=== PATIENT | male | born 1975 | race Caucasian/White ===

== ENCOUNTER → 2017-09-21 17:01 | Outpatient (CLI) | payer BC, SELFPAY ==
--- NOTE | 2017-09-21 16:55 | RAD_ITS ---
STUDY: X-RAY - RIGHT ELBOW REASON FOR EXAM: Male, 42 years old. Right elbow pain TECHNIQUE: 3 view(s) of the elbow. COMPARISON: None. FINDINGS: Normal visualized humerus, radius and ulna. Normal radiocapitellar and ulnotrochlear articulations. The soft tissue structures are unremarkable. RAD/Elbow min 3 Views IMPRESSION: Normal x-ray examination of the elbow. Electronically Signed: Yoni Salazar DO at 19:39 EDT Tel , Service support ,
== END ==
LOC: MTRAD 17:04
PROVIDERS: Family Provider Family Medicine; PCP Family Medicine; Visit Provider Family Medicine
DX: M25.521 Pain in right elbow (principal)
CPT/HCPCS: 73080

== ENCOUNTER 2017-11-01 17:00 | Outpatient (RCR) | payer BC, SELFPAY ==
--- NOTE | 2017-10-14 18:00 | HP.PTEVAL_ITS ---
Patient's Visit Information CAREY RODRIGUEZ is a 42 year old M referred to Physical Therapy by Maryan Diamond DO with a diagnosis of R post arm pain. Date of Evaluation: 10/14/17 Physical Therapist: Quan Albrecht PT, - Visit Plan Frequency: 2x /Week Duration: 3 Weeks Plan: US to distal tricep region, stick roll out, foam roller, stregnthening, and HEP - Subjective Subjective: Pt reports he has had R post elbow pain for over 4 months. Pt believes it may have been due to him swinging a hammer at work, which he does a lot. Pt reports it didnt really hurt that day, but for the next 2 days he was in severe pain. Pt notes he is unable to shake hands at this time due to pain. Pt reports the pain is mostly located on the distal insertion of the triceps region. No T or N at this time. Sleep diff at this time as pt notes he will wake up atleast a couple times a night. R hand dominant. No PMHx. 1/10 at rest, 9/10 at worst. - Pain R elbow Pain Intensity (Out of 10): 0 Pain Intensity Range: 9 - Objective Neuro:B UE sensation is WNL to light touch. B bicepital reflex= 2/3. Palpation : Pt is very sore on the distal triceps insertion site. No obvious deformity present at this time. elbow ROM: R= 0-135, L= 0-135. elbow MMT: B elbow flex = 5/5. L elbow ext= 5/5, R elbow ext= 4-/5 - Goals Goal 1:: Decrease R posterior elbow pain x 50% to aid with sleep Goal Time Frame: 2-4 Weeks Goal 2:: Increase R UE MMT to 5/5 to aid with RTW without limitation Goal Time Frame: 2-4 Weeks Goal 3:: I with HEP Goal Time Frame: 2-4 Weeks - Rehabilitation Potential Physical Therapy Diagnosis: R arm pain, limited ROM, and weakness secondary to a strain of the R distal triceps tendon Rehabilitation Potential: Good - Anticipated Interventions Patient/Client Instruction: Educate patient on: Condition, Plan of Care For the Purpose of:: To improve self management Therapeutic Exercise to Include: Strength training, Endurance training, Flexibilty training, Passive ROM, Active ROM, Scapular Strength/Stabilization For the Purpose of:: To decrease pain, To improve muscle performance and motor function Ultrasound (thermal/non thermal): Yes For the Purpose of:: To decrease pain Thank you for the opportunity to evaluate your patient. For Medicare and Medicare HMO plans, please review the plan of care and approve it. It will need to be FAXED BACK to us at [phone] for Medicare purposes. Please let me know if there are questions or concerns regarding this plan of care. Physician Signature: Date:
--- NOTE | 2017-12-17 08:14 | HP.PT.NRP ---
HP - Discharge Summary (1) - Patient Information CAREY RODRIGUEZ was seen in my office for initial evaluation on 10/14/17. The following Plan of Care was established for this patient: Initial Frequency: 2x /Week Initial Duration: 3 Weeks - Anticipated Interventions Patient/Client Instruction: Educate patient on: Condition, Plan of Care For the Purpose of:: To improve self management Therapeutic Exercise to Include: Strength training, Endurance training, Flexibilty training, Passive ROM, Active ROM, Scapular Strength/Stabilization For the Purpose of:: To decrease pain, To improve muscle performance and motor function Ultrasound (thermal/non thermal): Yes For the Purpose of:: To decrease pain This patient was last seen in our office . Pertinent comments regarding their Physical therapy will appear below: Pt was treated for 4 PT visits for his R posterior arm pain through the date of 11/01/17. Pt has not returned through todays date, and is therefore discontinued at this time. At this point I will be discontinuing this patient from physical therapy. I would be happy to see this patient again in the future if found appropriate by the physician. Thank you! Quan Albrecht, PT,
== END 2017-11-01 19:00 | disposition home or self-care (01) ==
LOC: PT 17:00
PROVIDERS: Family Provider Family Medicine; PCP Family Medicine; Visit Provider Orthopaedic Surgery
DX: M79.601 Pain in right arm (principal)
CPT/HCPCS: 97014; 97035; 97110; 97161; G0283

== ENCOUNTER → 2017-11-11 15:27 | Outpatient (CLI) | payer BC, SELFPAY | LOC: MRI 15:28 | PROVIDERS: Family Provider Family Medicine; PCP Family Medicine; Visit Provider Orthopaedic Surgery | DX: M77.8 Other enthesopathies, not elsewhere classified (principal); M79.601 Pain in right arm | CPT/HCPCS: 73220; A9585 ==

== ENCOUNTER → 2018-10-24 | Outpatient (CLI) | payer BC, SELFPAY ==
[2018-10-24 17:29] LABS: Absolute Lymphocyte Count 2.71 X10^3/uL (0.83-4.51); Absolute Neutrophil Count 5.4 X10^3/uL (2.0-7.7); Basophil# 0.09 X10^3/uL; Eosinophil# 0.14 X10^3/uL; Eosinophils% 1.5 % (0-5); Hematocrit 48.1 % (40-54); Hemoglobin 15.8 g/dL (13.0-16.5); Lymphocyte # 2.71 X10^3/ul (4.0); Lymphocyte % 28.8 % (19-41); Mean Corp Hgb Conc 32.8 g/dL (32-36); Mean Corpuscular Volume 94.3 fL (80-94); Mean Platelet Vol. 12.3 fl (6.2-12.0); Monocyte# 1.03 X10^3/uL; Monocyte% 10.9 % (0-10); NRBC Flagged by Analyzer 0 % (0-5); Neutrophil % 57.4 % (47-70); Platelet Count 204 K/mm3 (150-450); RBC Distribution Width CV 13.6 % (11.6-14.6); RBC Distribution Width SD 47.6 fl (35.1-43.9); White Blood Count 9.4 K/mm3 (4.4-11.0)
[2018-10-24 17:47] LABS: ALB/GLOB Ratio 1.2 RATIO (0.9-2.4); AST(SGOT) 34 U/L (15-37); Alanine Aminotransfer ALT/SGPT 73 U/L (16-61); Albumin, Serum 4.2 g/dL (3.2-5.0); Alkaline Phosphatase 72 U/L (45-117); Anion Gap 10 (5-15); BUN 20 mg/dL (7-18); BUN/Creat Ratio 14.4 RATIO (10-20); Chloride 108 mmol/L (98-107); Cholesterol 206 mg/dL (200); Creatinine, Serum 1.39 mg/dL (0.70-1.30); EST Glomerular Filtration Rate 59 mL/min (>60); Est Glom Filt Rate - Afr Amer 71 mL/min (>60); Globulin 3.6 g/dL (2.2-4.2); Glucose 97 mg/dL (74-106); High Density Lipoprotein 53 mg/dL; Protein, Total 7.8 g/dL (6.4-8.2); Sodium Level 144 mmol/L (136-145); Triglycerides 497 mg/dL
== END | disposition home or self-care (01) ==
LOC: BFHLAB 16:28
PROVIDERS: Family Provider Family Medicine; PCP Family Medicine; Visit Provider Family Medicine
DX: Z00.00 Encounter for general adult medical examination without abnormal findings (principal)
CPT/HCPCS: 36415; 80053; 80061; 85025

== ENCOUNTER → 2018-11-15 | Outpatient (CLI) | payer BC, SELFPAY | END | disposition home or self-care (01) | LOC: SL 20:24 | PROVIDERS: Family Provider Family Medicine; PCP Family Medicine; Referring Provider Family Medicine; Visit Provider Family Medicine | DX: G47.19 Other hypersomnia (principal); R53.83 Other fatigue; I10 Essential (primary) hypertension | CPT/HCPCS: 95810 ==

== ENCOUNTER → 2019-04-06 15:53 | Outpatient (CLI) | payer BC, SELFPAY ==
--- NOTE | 2019-04-06 15:57 | RAD_ITS ---
STUDY: X-RAY - RIGHT TIBIA AND FIBULA REASON FOR EXAM: Male, 43 years old. hit mid anterior tibia on a trailer hitch about a month ago, still having pain TECHNIQUE: 2 view(s) of the tibia and fibula were obtained. COMPARISON: None. FINDINGS: Normal visualized tibia. Normal visualized fibula. There is no demonstrated acute fracture. The soft tissue structures are unremarkable. RAD/Tibia & Fibula 2 Views IMPRESSION: Normal x-ray examination of the tibia and fibula. Electronically Signed: Sherrie Mosquera MD at 18:18 EST , Service support ,
== END ==
LOC: MTRAD 15:56
PROVIDERS: Family Provider Family Medicine; PCP Family Medicine; Referring Provider Family Medicine; Visit Provider Family Medicine
DX: M89.8X6 Other specified disorders of bone, lower leg (principal)
CPT/HCPCS: 73590

== ENCOUNTER → 2019-10-20 | Outpatient (CLI) | payer BC, SELFPAY | END | disposition home or self-care (01) | LOC: LABSPEC 09:41 | PROVIDERS: PCP Family Medicine; Referring Provider Family Medicine; Visit Provider Family Medicine | DX: Z20.828 Contact with and (suspected) exposure to other viral communicable diseases (principal) | CPT/HCPCS: 87635; 94799; U0003 ==

== ENCOUNTER → 2020-01-10 10:16 | Outpatient (CLI) | payer BC, SELFPAY ==
[2020-01-12 07:48] LABS: Testosterone Free 3.2 pg/mL (6.8-21.5)
== END ==
LOC: BFHLAB 10:19
PROVIDERS: PCP Family Medicine; Visit Provider Family Medicine
DX: R53.83 Other fatigue (principal); N52.9 Male erectile dysfunction, unspecified
CPT/HCPCS: 36415; 84402; 84403

== ENCOUNTER → 2020-01-19 09:51 | Outpatient (CLI) | payer BC, SELFPAY ==
[2020-01-19 12:44] LABS: Prolactin 4.2 ng/mL; Thyroid Stim Hormone (TSH) 4.38 uIU/mL (0.358-3.74)
[2020-01-24 09:07] LABS: Testosterone, % Free 1.97 % (1.50-4.20); Testosterone, Free 4.67 ng/dL (5.00-21.00)
[2020-01-24 11:40] LABS: Testosterone, Total 237 ng/dL (264-916); Transferrin 335 mg/dL (177-329)
== END ==
LOC: BFHLAB 09:52
PROVIDERS: PCP Family Medicine; Visit Provider Family Medicine
DX: E29.1 Testicular hypofunction (principal)
CPT/HCPCS: 36415; 84146; 84402; 84403; 84443; 84466

== ENCOUNTER → 2020-01-26 09:32 | Outpatient (CLI) | payer BC, SELFPAY ==
[2020-01-26 13:27] LABS: CRP < 2.90 mg/L (0.0-3.0); Ferritin 327 ng/mL (26-388)
[2020-01-27 14:32] LABS: Transferrin 316 mg/dL (177-329)
== END ==
PROVIDERS: PCP Family Medicine; Visit Provider Family Medicine
DX: M25.50 Pain in unspecified joint (principal); E29.1 Testicular hypofunction; R79.89 Other specified abnormal findings of blood chemistry
CPT/HCPCS: 36415; 82728; 84466; 86140

== ENCOUNTER → 2020-05-29 09:49 | Outpatient (CLI) | payer BC, SELFPAY ==
[2020-05-29 12:40] LABS: Erythrocyte Sedimentation Rate 4 mm/hr (0-20)
[2020-05-29 13:07] LABS: ALB/GLOB Ratio 1.2 RATIO (0.9-2.4); AST(SGOT) 30 U/L (15-37); Alanine Aminotransfer ALT/SGPT 56 U/L (16-61); Albumin, Serum 4.3 g/dL (3.2-5.0); Alkaline Phosphatase 59 U/L (45-117); Anion Gap 5 (5-15); BUN 13 mg/dL (7-18); BUN/Creat Ratio 9.7 RATIO (10-20); CRP < 2.90 mg/L (0.0-3.0); Calcium,Total 9.3 mg/dL (8.5-10.1); Chloride 102 mmol/L (98-107); Creatinine, Serum 1.34 mg/dL (0.70-1.30); EST Glomerular Filtration Rate 61 mL/min (>60); Est Glom Filt Rate - Afr Amer 74 mL/min (>60); Globulin 3.6 g/dL (2.2-4.2); Glucose 98 mg/dL (74-106); Protein, Total 7.9 g/dL (6.4-8.2); Rheumatoid Factor < 10.0 IU/mL (<15); Sodium Level 136 mmol/L (136-145)
[2020-06-01 20:07] LABS: Testosterone, % Free 2.49 % (1.50-4.20); Testosterone, Free 8.94 ng/dL (5.00-21.00)
[2020-06-01 21:19] LABS: CCP IgG Antibodies 3 units (0-19); Testosterone, Total 359 ng/dL (264-916)
== END ==
LOC: BFHLAB 09:50
PROVIDERS: PCP Family Medicine; Visit Provider Family Medicine
DX: I12.9 Hypertensive chronic kidney disease with stage 1 through stage 4 chronic kidney disease, or unspecified chronic kidney disease (principal); N18.30 Chronic kidney disease, stage 3 unspecified; E29.1 Testicular hypofunction; M25.50 Pain in unspecified joint
CPT/HCPCS: 36415; 80053; 84402; 84403; 85652; 86140; 86200; 86431

== ENCOUNTER → 2020-06-25 11:43 | Outpatient (CLI) | payer BC, SELFPAY ==
[2020-06-25 15:19] LABS: Absolute Neutrophil Count 4.1 X10^3/uL (2.0-7.7); Basophil# 0.07 X10^3/uL; Basophil% 0.9 % (0-1); Eosinophil# 0.26 X10^3/uL; Eosinophils% 3.4 % (0-5); Hematocrit 47.2 % (40-54); Hemoglobin 15.2 g/dL (13.0-16.5); Lymphocyte % 32.7 % (19-41); Mean Corp Hgb Conc 32.2 g/dL (32-36); Mean Corpuscular Hgb 30.9 pg (27.0-32.0); Mean Corpuscular Volume 95.9 fL (80-94); Mean Platelet Vol. 12.1 fl (6.2-12.0); Monocyte# 0.69 X10^3/uL; NRBC Flagged by Analyzer 0 % (0-5); Neutrophil % 53.7 % (47-70); Platelet Count 198 K/mm3 (150-450); RBC Distribution Width CV 14.2 % (11.6-14.6); RBC Distribution Width SD 50.1 fl (35.1-43.9); Red Blood Count 4.92 M/mm3 (4.6-6.2); White Blood Count 7.6 K/mm3 (4.4-11.0)
[2020-06-25 15:56] LABS: ALB/GLOB Ratio 1.2 RATIO (0.9-2.4); AST(SGOT) 31 U/L (15-37); Alanine Aminotransfer ALT/SGPT 62 U/L (16-61); Albumin, Serum 4.2 g/dL (3.2-5.0); Alkaline Phosphatase 52 U/L (45-117); Anion Gap 4 (5-15); BUN 14 mg/dL (7-18); BUN/Creat Ratio 11.6 RATIO (10-20); Calcium,Total 8.9 mg/dL (8.5-10.1); Chloride 105 mmol/L (98-107); Creatinine, Serum 1.21 mg/dL (0.70-1.30); EST Glomerular Filtration Rate 68 mL/min (>60); Est Glom Filt Rate - Afr Amer 83 mL/min (>60); Globulin 3.4 g/dL (2.2-4.2); Glucose 85 mg/dL (74-106); Potassium 3.9 mmol/L (3.5-5.1); Protein, Total 7.6 g/dL (6.4-8.2); Sodium Level 137 mmol/L (136-145)
== END ==
LOC: MTLAB 11:44
PROVIDERS: PCP Family Medicine; Referring Provider Family Medicine; Visit Provider Family Medicine
DX: Z51.81 Encounter for therapeutic drug level monitoring (principal)
CPT/HCPCS: 36415; 80053; 85025

== ENCOUNTER → 2021-03-12 11:37 | Outpatient (CLI) | payer BC, SELFPAY ==
--- NOTE | 2021-03-12 11:48 | RAD_ITS ---
STUDY: X-RAY - LUMBAR SPINE REASON FOR EXAM: Male, 45 years old. LBP TECHNIQUE: 5 view(s) of the lumbar spine were obtained. COMPARISON: Comparison is made with prior study dated 11/12/2015. FINDINGS: Normal lumbar lordosis. There is no substantial scoliosis. There is a normal alignment of the vertebrae. Partial lumbarization of the S1 vertebrae more prominent on the right side. Mild degree of spondylosis and disc space narrowing at the L4-L5 level. The soft tissue structures are unremarkable. RAD/L/S Spine Min 4 Views IMPRESSION: Degenerative changes of the spine, as detailed above. Electronically Signed: Akil Caal MD at 15:28 EST , Service support ,
== END ==
LOC: MTRAD 11:39
PROVIDERS: PCP Family Medicine; Referring Provider Family Medicine; Visit Provider Family Medicine
DX: M54.50 Low back pain, unspecified (principal)
CPT/HCPCS: 72110

== ENCOUNTER 2021-06-23 14:00 | Outpatient (CLI) | payer BC, SELFPAY ==
--- NOTE | 2021-06-23 14:08 | RAD_ITS ---
STUDY: X-RAY - UNILATERAL RIBS ( RIGHT ) WITH CHEST REASON FOR EXAM: Male, 45 years old. Anterior lower right rib injury since fall 6 weeks ago. TECHNIQUE - RIBS: 5 view(s) of the ribs. TECHNIQUE - CHEST: Single frontal view of the chest. COMPARISON: Chest x-ray dated 11/19/2014. FINDINGS - RIBS: Normal visualized ribs without a demonstrated fracture. FINDINGS - CHEST: The lungs are clear and expanded. There is no demonstrated pleural abnormality. Normal size heart. Normal mediastinum and yashira. Normal visualized pulmonary arteries. Normal visualized aortic arch and descending thoracic aorta. Normal visualized thoracic spine. Normal visualized ribs, clavicles, and shoulders. There is no demonstrated abnormality of the visualized soft tissue structures of the upper abdomen. RAD/Ribs Uni Min 3V w/PA Chest IMPRESSION: RIBS: Normal x-ray examination of the ribs. CHEST: No interval change. Normal x-ray examination of the chest. Electronically Signed: Mao Dixon MD at 9:10 EDT ,
== END 2021-06-23 23:59 | disposition home or self-care (01) ==
LOC: MTRAD 14:01
PROVIDERS: PCP Family Medicine; Referring Provider Family Medicine; Visit Provider Family Medicine
DX: R07.81 Pleurodynia (principal)
CPT/HCPCS: 71101

== ENCOUNTER → 2021-08-12 | Outpatient (CLI) | payer BC, SELFPAY ==
--- NOTE | 2021-08-12 06:51 | CT_ITS ---
STUDY: CT ABDOMEN AND PELVIS WITH CONTRAST REASON FOR EXAM: Male, 45 years old. LLQ ABD PAIN RADIATION DOSAGE (If Supplied By Facility): CTDIvol = ( 11.53 ) mGy, DLP = ( 1042.77 ) mGycm TECHNIQUE: Transaxial images were obtained from the dome of the diaphragm to the symphysis pubis without oral contrast. Oral and amp; IV Readi-CAT and amp; 100mL Isovue-370 was administered. Sagittal and coronal images were reconstructed. Individualized dose optimization techniques were used for this CT. COMPARISON: None. FINDINGS: The visualized lung bases are unremarkable. The visualized portions of the heart are within normal limits. Normal liver. Normal gallbladder and extrahepatic biliary system. Normal spleen. Normal pancreas. Normal bilateral adrenal glands. Normal right kidney. Normal left kidney. Normal visualized stomach. Normal small intestine. There is diverticulitis of the sigmoid colon with diverticula, thickening of the wall and a low density rounded collection which may be fluid within the wall. There is adjacent stranding in the pericolonic fat. The appendix is visualized and appears normal. Normal abdominal aorta. Normal inferior vena cava. Normal retroperitoneum. Normal urinary bladder. Normal abdominal wall. Normal osseous structures. CT/Abdomen/Pelvis WITH Contrast IMPRESSION: There is a loop of inflammation of the sigmoid colon likely representing diverticulitis without intramural abscess and pericolonic stranding. Electronically Signed: Jossue Granda MD at 7:42 EDT ,
[2021-08-12 07:05] LABS: CREATININE FINGERSTICK 1.4 mg/dL (0.70-1.30)
== END | disposition home or self-care (01) ==
LOC: CT 06:50
PROVIDERS: PCP Family Medicine; Visit Provider Family Medicine
DX: R10.32 Left lower quadrant pain (principal); I10 Essential (primary) hypertension
CPT/HCPCS: 74177; Q9967

== ENCOUNTER → 2023-02-11 | Outpatient (CLI) | payer BC, SELFPAY ==
[2023-02-11 09:56] LABS: Absolute Lymphocyte Count 2.64 X10^3/uL (0.83-4.51); Absolute Neutrophil Count 5.6 X10^3/uL (2.0-7.7); Basophil# 0.11 X10^3/uL; Basophil% 1.2 % (0-1); Eosinophil# 0.25 X10^3/uL; Eosinophils% 2.6 % (0-5); Hematocrit 48.9 % (40-54); Hemoglobin 15.5 g/dL (13.0-16.5); Lymphocyte # 2.64 X10^3/ul (0.83-4.51); Mean Corp Hgb Conc 31.7 g/dL (32-36); Mean Corpuscular Hgb 29.9 pg (27.0-32.0); Mean Corpuscular Volume 94.2 fL (80-94); Mean Platelet Vol. 12.3 fl (6.2-12.0); Monocyte# 0.81 X10^3/uL; Monocyte% 8.6 % (0-10); NRBC Flagged by Analyzer 0 % (0-5); Neutrophil # 5.61 X10^3/uL (2.7-7.7); Neutrophil % 59.4 % (47-70); Platelet Count 194 K/mm3 (150-450); RBC Distribution Width CV 13.4 % (11.6-14.6); RBC Distribution Width SD 46.5 fl (35.1-43.9); Red Blood Count 5.19 M/mm3 (4.6-6.2); White Blood Count 9.4 K/mm3 (4.4-11.0)
[2023-02-11 10:28] LABS: ALB/GLOB Ratio 1.1 RATIO (0.9-2.4); AST(SGOT) 24 U/L (15-37); Alanine Aminotransfer ALT/SGPT 48 U/L (16-61); Albumin, Serum 3.9 g/dL (3.2-5.0); Alkaline Phosphatase 73 U/L (45-117); Anion Gap 2 (5-15); BUN 16 mg/dL (7-18); Chloride 107 mmol/L (98-107); Cholesterol 222 mg/dL (200); Creatinine, Serum 1.14 mg/dL (0.70-1.30); EST Glomerular Filtration Rate 72 mL/min (>60); Est Glom Filt Rate - Afr Amer 88 mL/min (>60); Globulin 3.4 g/dL (2.2-4.2); Glucose 98 mg/dL (74-106); High Density Lipoprotein 48 mg/dL; Potassium 4.1 mmol/L (3.5-5.1); Protein, Total 7.3 g/dL (6.4-8.2); Sodium Level 139 mmol/L (136-145); T4 Free Direct 0.82 ng/dL (0.76-1.46); Thyroid Stim Hormone (TSH) 3.84 uIU/mL (0.358-3.74); Triglycerides 145 mg/dL; Very Low Density Lipoprotein 29 mg/dL (5-40)
== END | disposition home or self-care (01) ==
LOC: MTLAB 08:26
PROVIDERS: PCP Family Medicine; Referring Provider Nurse Practitioner Family; Visit Provider Nurse Practitioner Family
DX: Z00.01 Encounter for general adult medical examination with abnormal findings (principal); E78.1 Pure hyperglyceridemia; E03.9 Hypothyroidism, unspecified
CPT/HCPCS: 36415; 80053; 80061; 84402; 84403; 84439; 84443; 85025

== ENCOUNTER 2024-01-09 16:45 | Emergency (ER) | payer BC, SELFPAY ==
[2024-01-09 16:49] VITALS: BP 145/78; PULSE 77; RESP 18; TEMP 36.4; O2SAT 98; BMI 26.4
--- NOTE | 2024-01-09 16:54 | EKG12_ITS ---
Test Reason : CP Blood Pressure : / mmHG Vent. Rate : 070 BPM Atrial Rate : 070 BPM P-R Int : 160 ms QRS Dur : 100 ms QT Int : 392 ms P-R-T Axes : 069 067 070 degrees QTc Int : 423 ms Normal sinus rhythm Normal ECG Confirmed by Tyrell Metcalf ([id number]), editor managing newspaper DERRICK CAMPO ([id number]) on 01/11/2024 7:53:03 AM Referred By: Confirmed By:Tyrell Metcalf
--- NOTE | 2024-01-09 16:55 | ED.VIS.CHEST ---
HPI History of Present Illness Chief Complaint: Chest Pain Informant: patient Narrative Narrative: 30 minutes prior to arrival sudden onset midsternal chest pain rating to his back bilateral neck. He is playing cards with friends. He states short of breath and broke out in heavy sweats and was clammy. No pain on the arms. No cardiac history. Tobacco history and strong family history of MIs father having bypass at the age of 45. Hypertension. Denies diabetes or hyperlipidemia. Stress test 2 years ago. No history of heart caths. Symptoms overall lasted 6 minutes that was relayed to the son as it was timed by a friend who is a nurse. He is currently asymptomatic. Denies any cough. Reports pain was a combination sharp achiness and pressure. Prior Similar Symptoms: No PFSH PFSH Home Medications ?Medication ?Instructions ?Recorded ?Last Taken ?Type lisinopril 20 1 tab PO QDAY 10/12/17 Unknown History mg-hydrochlorothiazide 12.5 mg tablet montelukast 10 mg tablet 10 mg PO QPM 10/12/17 Unknown History (Singulair) Allergy/AdvReac Type Severity Reaction Status Date / Time erythromycin base Allergy Rash Verified 11/25/17 08:38 (Erythromycin Base) naproxen (From Naprosyn) Allergy Rash Verified 11/25/17 08:38 Social History Smoking Status: Current every day smoker tobacco type: cigarettes ROS ROS ED Constitutional Constitutional ED: Reports sweats; Denies chills or fever(s) Eyes Eyes: Denies change in vision ENT ENT ED: Denies dysphagia or sore throat Cardiovascular Cardiovascular: Reports chest pain; Denies leg edema, palpitations or racing heartbeat Respiratory/Chest Respiratory/Chest: Reports dyspnea; Denies cough or dyspnea on exertion Gastrointestinal Gastrointestinal: Denies abdominal pain, diarrhea, nausea or vomiting Genitourinary Genitourinary ED: Denies dysuria, hematuria or urinary frequency Musculoskeletal Musculoskeletal: Denies back pain, extremity pain or neck pain Integumentary Denies rash or wounds Neurologic Neurologic: Denies headache(s), paresthesias or weakness EXAM Physical Exam Const Vital Signs: 01/09/24 16:49 01/09/24 16:57 01/09/24 17:46 Temperature 97.5 F L Temperature Source Oral Pulse Rate 77 59 L Respiratory Rate 18 22 H Blood Pressure 145/78 H 119/87 H Blood Pressure Mean 100 97 Pulse Ox 98 93 Oxygen Delivery Method Room Air Room Air Room Air 01/09/24 18:00 01/09/24 19:00 01/09/24 19:51 Temperature 97 F L Temperature Source Pulse Rate 52 L 62 63 Respiratory Rate 21 H 27 H 28 H Blood Pressure 129/84 H 128/92 H 121/78 H Blood Pressure Mean 99 104 92 Pulse Ox 95 94 98 Oxygen Delivery Method Room Air Positive well nourished and well developed General Appearance ED: well developed and NAD HEENT Reports moist mucous membranes normocephalic and atraumatic Eyes EOMs intact bilaterally and conjunctivae normal General Eye ED: Yes normal appearance of both eyes Neck no lymphadenopathy and supple General: Negative for tenderness Chest Wall Chest: Negative for tenderness Resp normal respiratory effort and normal air movement Effort and Inspection: symmetric chest movement; Negative for respiratory distress Cardio regular rate, regular rhythm and no murmurs Peripheral Pulses: pulses 2+ throughout GI normal to inspection, nondistended, normoactive bowel sounds and non-tender Palpation: Negative for guarding or rebound tenderness present Back/Spine no CVA tenderness and no thoracic nor lumbar tenderness Extremity normal to inspection General Extremety ED: Negative for edema or tenderness General Extremity: Negative for edema Neuro oriented x3 and no sensory deficits noted Sensorium / Orientation: awake and alert Skin no rashes or lesions noted and no wounds Heart Score History: Highly Suspicious ECG: Normal Age: >45 - <65 years Risk Factors: >/= 3 Risk Factors or History of CAD Troponin: </= Normal Limit Score: 5 MDM MDM MDM Narrative Medical decision making narrative: Interventions / MDM: Differential diagnosis: Chest pain Diagnosis considered but do not suspect: N/A My EKG interpretation: Sinus rate of 70, no ST or T wave changes. Imaging independently reviewed and interpreted by myself: 1 view chest x-ray: No acute process also read by radiology. External documents reviewed: N/A Test considered but not ordered:N/A ED course: Patient currently symptom-free. EKG with no acute findings. Strong family history of MN at young age. Symptoms were concerning. Will give aspirin cardiac workup initiated. Will closely monitor. 1800: Remains symptom-free initial troponin negative. 1 view chest x-ray shows no acute process. Creatinine 1.4. Hemoglobin 14.2. He denies recent vomiting. Does admit to decreased p.o. intake at home. Awaiting delta troponin. 1940: Repeat troponin negative. Patient remained symptom-free throughout. Heart score is a 5. He had concerning symptoms, I discussed with patient for admission. However he states he would like to follow-up with PCP for further testing. As workup is negative this time, I feel that this is an option. Family was present during the discussion. They will call his PCP tomorrow for further testing. Discussed strict return precautions. All questions were answered. Re-evaluation: stable Disposition discussed with patient/family/significant other: Patient and family Case discussed with consulting clinician: N/A This note was generated with [employer] dictation software. It may contain incorrect words, spelling, and punctuation that were not noted in checking the note before signing. Lab Data Attestation: I reviewed the patient's lab results. Labs: Laboratory Results - last 24 hr 01/09/24 01/09/24 16:38 19:01 WBC 8.7 RBC 4.85 Hgb 14.2 Hct 44.6 MCV 92.0 MCH 29.3 MCHC 31.8 L RDW Std Deviation 47.8 H RDW Coeff of Jesse 14.2 Plt Count 265 MPV 10.8 Immature Gran % (Auto) 0.200 Neut % (Auto) 56.1 Lymph % (Auto) 32.0 [place] % (Auto) 8.7 Eos % (Auto) 2.2 Baso % (Auto) 0.8 Absolute Neuts (auto) 4.9 Absolute Lymphs (auto) 2.78 Nucleated RBC % 0 PT 13.3 INR 1.0 APTT 29.2 Sodium 134 L Potassium 3.6 Chloride 103 Carbon Dioxide 27.0 Anion Gap 5 BUN 13 Creatinine 1.40 H Estim Creat Clear Calc 69.29 Est GFR (MDRD) Af Amer 69 Est GFR (MDRD) Non-Af 57 L BUN/Creatinine Ratio 9.3 L Glucose 98 Calcium 9.2 Troponin I High Sens 4 5 Radiography Diagnostic Testing: Clinical Impression(s) from Imaging Studies Chest X-Ray 01/09/24 17:00 IMPRESSION: No radiographic evidence of acute cardiopulmonary disease. Electronically Signed: Quan Rivero MD at 17:27 EDT , Discharge Plan Triage Chief Complaint: Chest Pain ED Provider: Kenneth Narayan Dx/Rx/DC Orders Clinical Impression: Chest pain, Tobacco dependence, Mild renal insufficiency Instructions: ED Chest Pain, Uncertain Cause, ED Renal Insufficiency Prescriptions: No Action montelukast [Singulair] 10 mg tablet 10 mg PO QPM lisinopril-hydrochlorothiazide 20-12.5 mg tablet 1 tab PO QDAY Primary Care Provider: Tank Henry Referrals: Tank Henry DO [Primary Care Provider] - 1 Day Activity Restrictions/Additional Instructions: EKG negative troponin negative x 2. Your labs slight renal sufficiency creatinine 1.4. Increase your fluid intake at home. Call your doctor tomorrow for further testing as you declined admission for further testing. If you develop recurrent symptoms, return immediately to the emergency room. Print Language: Yakut Disposition Disposition: Home, Self Care Discharge Date/Time: 01/09/24 19:51
--- NOTE | 2024-01-09 17:00 | RAD_ITS ---
EXAM: XR CHEST, 1 VIEW CLINICAL INDICATION: chest pain TECHNIQUE: Frontal view of the chest. COMPARISON: 06.23.21 FINDINGS: LUNGS AND PLEURAL SPACES: Unremarkable. No consolidation or edema. No pneumothorax. No effusion. HEART: Unremarkable. Cardiac silhouette not enlarged. MEDIASTINUM: Central airways and mediastinal contour are unremarkable. BONES/JOINTS: Unremarkable. No acute fracture. SOFT TISSUES: Unremarkable. RAD/Chest 1 View (Portable) IMPRESSION: No radiographic evidence of acute cardiopulmonary disease. Electronically Signed: Quan Rivero MD at 17:27 EDT ,
[2024-01-09] MEDS: Aspirin 81 MG TAB.CHEW 324 MG PO (17:02)
[2024-01-09 17:05] LABS: Absolute Lymphocyte Count 2.78 X10^3/uL (0.83-4.51); Absolute Neutrophil Count 4.9 X10^3/uL (2.0-7.7); Basophil# 0.07 X10^3/uL; Basophil% 0.8 % (0-1); Eosinophil# 0.19 X10^3/uL; Eosinophils% 2.2 % (0-5); Hematocrit 44.6 % (40-54); Hemoglobin 14.2 g/dL (13.0-16.5); Lymphocyte # 2.78 X10^3/ul (0.83-4.51); Mean Corp Hgb Conc 31.8 g/dL (32-36); Mean Corpuscular Hgb 29.3 pg (27.0-32.0); Mean Platelet Vol. 10.8 fl (6.2-12.0); Monocyte# 0.76 X10^3/uL; Monocyte% 8.7 % (0-10); NRBC Flagged by Analyzer 0 % (0-5); Neutrophil # 4.87 X10^3/uL (2.7-7.7); Neutrophil % 56.1 % (47-70); Platelet Count 265 K/mm3 (150-450); RBC Distribution Width CV 14.2 % (11.6-14.6); RBC Distribution Width SD 47.8 fl (35.1-43.9); Red Blood Count 4.85 M/mm3 (4.6-6.2); White Blood Count 8.7 K/mm3 (4.4-11.0)
[2024-01-09 17:14] LABS: Prothrombin Time (Protime)PT. 13.3 SECONDS (11.7-14.9)
[2024-01-09 17:16] LABS: Partial Thromboplast Time 29.2 Seconds (24.1-36.2)
[2024-01-09 17:24] LABS: Anion Gap 5 (5-15); BUN 13 mg/dL (7-18); BUN/Creat Ratio 9.3 RATIO (10-20); Calcium,Total 9.2 mg/dL (8.5-10.1); Chloride 103 mmol/L (98-107); EST Glomerular Filtration Rate 57 mL/min (>60); Est Glom Filt Rate - Afr Amer 69 mL/min (>60); Estimated Creatinine Clearance 69.29 ml/min; Glucose 98 mg/dL (74-106); Potassium 3.6 mmol/L (3.5-5.1); Sodium Level 134 mmol/L (136-145); Troponin-I HS (w/2H Reflex) 4 pg/mL (3.0-78.0)
[2024-01-09 17:46] VITALS: BP 119/87; PULSE 59; RESP 22; O2SAT 93
[2024-01-09 18:00] VITALS: BP 129/84; PULSE 52; RESP 21; O2SAT 95
[2024-01-09 19:00] VITALS: BP 128/92; PULSE 62; RESP 27; O2SAT 94
[2024-01-09 19:03] LABS: Reflex Troponin-HS? (from REC) Y
[2024-01-09 19:36] LABS: Troponin-I HS 5 pg/mL (3.0-78.0)
[2024-01-09 19:51] VITALS: BP 121/78; PULSE 63; RESP 28; TEMP 36.1; O2SAT 98
== END 2024-01-09 19:51 | disposition home or self-care (01) ==
PROVIDERS: Emergency Provider Emergency Medicine; PCP Family Medicine; Visit Provider Emergency Medicine
DX: R07.9 Chest pain, unspecified (principal); I10 Essential (primary) hypertension; R06.00 Dyspnea, unspecified; N28.9 Disorder of kidney and ureter, unspecified; M54.2 Cervicalgia; F17.210 Nicotine dependence, cigarettes, uncomplicated; Z79.899 Other long term (current) drug therapy
CPT/HCPCS: 71045; 80048; 84484; 85025; 85610; 85730; 93005; 99284; A4216